=== PATIENT | male | born 2000 | race Caucasian/White ===

== ENCOUNTER 2019-02-01 17:59 | Emergency (ER) | payer OTHER ==
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
[2019-02-01 19:13] VITALS: BP 126/71
== END 2019-02-01 19:11 | disposition home or self-care (01) ==
DX: S40.011A Contusion of right shoulder, initial encounter (principal); S80.11XA Contusion of right lower leg, initial encounter; V13.0XXA Pedal cycle driver injured in collision with car, pick-up truck or van in nontraffic accident, initial encounter; Y93.55 Activity, bike riding